=== PATIENT | female | born 1950 | race Caucasian/White ===

== ENCOUNTER 2021-05-06 12:34 | Emergency (ER) | payer MEDICARE, SELFPAY ==
[2021-05-06 13:08] VITALS: BP 143/74; BP 164/88; PULSE 66; PULSE 76; RESP 16; TEMP 36.7; O2SAT 100; O2SAT 99; BMI 25.0
--- NOTE | 2021-05-06 13:38 | PC.NURSE ---
Addendum entered by Claudia Nguyen, [facility] 05/06/21 13:51: CARE Team notified [facility] that CARE Team will see Pt due to insurance Original Note: patient was referred to n
[2021-05-06] MEDS: LORazepam 1 MG TABLET PO (13:46)
[2021-05-06 14:33] LABS: COVID-19 Test Negative (Negative)
[2021-05-06 14:47] LABS: Amphetamine Screen Urine Not Detected (Not Detect); Barbiturates, Urine Not Detected (Not Detect); Benzodiazepines Screen Urine Not Detected (Not Detect); Cannabinoid Screen Urine Not Detected (Not Detect); Cocaine Screen Urine Not Detected (Not Detect); Fentanyl, urine Not Detected (Not Detect); Opiate Screen Urine Not Detected (Not Detect); Phencyclidine Screen Urine Not Detected (Not Detect)
--- NOTE | 2021-05-06 15:46 | MHC.CARE ---
CARE team will meet with pt this evening. Per report- she received ativan around 2pm and is sleeping.
--- NOTE | 2021-05-06 16:54 | ED.ANXIETY ---
HPI - Anxiety General Chief Complaint: Anxiety <LINDSAY Tamayo - Last Filed: 05/06/21 17:34> Stated Complaint: ANXIETY ATTACK PER PT <LINDSAY Tamayo - Last Filed: 05/06/21 17:34> Time Seen by Provider: 05/06/21 13:40 <LINDSAY Tamayo Last Filed: 05/06/21 17:34> Source: patient <LINDSAY Tamayo - Last Filed: 05/06/21 17:34> Mode of arrival: ambulatory <LINDSAY Tamayo - Last Filed: 05/06/21 17:34> History of Present Illness HPI narrative: 70-year-old female with past medical history of anxiety presenting to the ED complaining of increased anxiety and panic attack since Thursday s/p being computer hacked. Patient reports she was substantially hacked with her credit cards/savings account, after mistrusting hackers which caused a panic attack, and she yelled at [employer] employee today. Denies EtOH or illicit drug use. Denies SI/HI, CP/SOB, abdominal pain, nausea/vomiting <LINDSAY Tamayo - Last Filed: 05/06/21 17:34> MD complaint: anxiety <LINDSAY Tamayo Last Filed: 05/06/21 17:34> Onset (ago): day(s) <LINDSAY Tamayo - Last Filed: 05/06/21 17:34> Related Data Home Medications: Home Medications Medication Instructions Recorded Confirmed azelastine 137 mcg (0.1 %) nasal 2 spray INTRANASAL DAILY 05/06/21 05/06/21 spray aerosol citalopram 20 mg tablet 1 tab PO DAILY 05/06/21 05/06/21 <LINDSAY Tamayo - Last Filed: 05/06/21 17:34> Allergies/Adverse Reactions: Allergies Allergy/AdvReac Type Severity Reaction Status Date / Time No Known Allergies Allergy Verified 05/06/21 13:40 <LINDSAY Tamayo Last Filed: 05/06/21 17:34> Review of Systems Review of Systems: Constitutional: No Fever, No Chills, No Fatigue, No Malaise ENT/Mouth: No Ear Pain, No Nasal Congestion, No sore throat, No Rhinorrhea, No Swallowing Difficulty Eyes: No Eye Pain, No Swelling, No Redness, No Vision Changes Cardiovascular: No Chest Pain, No SOB, No Dyspnea on Exertion, No Palpitations Respiratory: No Cough, No Sputum, No Dyspnea Gastrointestinal: No Nausea, No Vomiting, No Diarrhea, No Constipation, No Abdominal pain Genitourinary: No Dysuria, No Urinary Frequency, No Flank Pain Musculoskeletal: No joint pain, No Myalgias, No Joint Swelling Skin: No Skin Lesions, No rash Neuro: No Weakness, No Numbness, No Paresthesias, No Dizziness, No Headache Psych: + Anxiety/Panic, No Depression, No SI/HI/AH/VH, No Social Issues <LINDSAY Tamayo - Last Filed: 05/06/21 17:34> Yes all other systems are reviewed and are negative <LINDSAY Tamayo - Last Filed: 05/06/21 17:34> [facility] Past Medical History Attestation statement: The following information was validated with the patient. <LINDSAY Tamayo - Last Filed: 05/06/21 17:34> Social History Social History: Social History Advance Directives: No Advance Directives Information Provided: Yes <LINDSAY Tamayo - Last Filed: 05/06/21 17:34> Physical Exam Vital Signs: Vital Signs: Last Vital Signs Temp 98.1 F 05/06/21 13:08 Pulse 66 05/06/21 13:08 Resp 16 05/06/21 13:08 BP 143/74 H 05/06/21 13:08 Pulse Ox 100 05/06/21 13:08 BMI result Body Mass Index 25.0 <LINDSAY Tamayo - Last Filed: 05/06/21 17:34> Vital Signs: Last Vital Signs Temp 98.1 F 05/06/21 13:08 Pulse 66 05/06/21 13:08 Resp 16 05/06/21 13:08 BP 143/74 H 05/06/21 13:08 Pulse Ox 100 05/06/21 13:08 BMI result Body Mass Index 25.0 <LINDSAY Tipton - Last Filed: 05/06/21 20:05> Const: Other: Anxious, jumpy, tearful <Harika Mora PA - Last Filed: 05/06/21 17:34> General: cooperative, alert, awake and anxious <Harika Mora PA - Last Filed: 05/06/21 17:34> Orientation/consciousness: patient oriented x3 <Harika Mora PA - Last Filed: 05/06/21 17:34> Limitations: no limitations <Harika Mora PA - Last Filed: 05/06/21 17:34> HENMT: Head: Yes normal to inspection and Yes atraumatic <Harika Mora PA - Last Filed: 05/06/21 17:34> Ears: hearing grossly normal bilaterally <Harika Mora PA - Last Filed: 05/06/21 17:34> General nose exam: Normal external nose present <Harika Mora PA - Last Filed: 05/06/21 17:34> Face and sinus: Yes normal facial exam <Harika Mora PA - Last Filed: 05/06/21 17:34> Eyes: General: appearance normal, both eyes and all related structures <Harika Mora PA - Last Filed: 05/06/21 17:34> EOM: EOMs intact bilaterally <Harika Mora PA - Last Filed: 05/06/21 17:34> Neck: Neck: Yes normal visual inspection and Yes no meningeal signs <Harika Mora PA - Last Filed: 05/06/21 17:34> Resp: Effort & Inspection: normal respiratory effort and no respiratory distress <Harika Mora PA - Last Filed: 05/06/21 17:34> Auscultation: clear to auscultation bilaterally, no rales, no rhonchi and no wheezes <Harika Mora PA - Last Filed: 05/06/21 17:34> Cardio: Rate: regular rate <Harika Mora PA - Last Filed: 05/06/21 17:34> Heart sounds: S1 normal heart sound present and S2 normal heart sound present <Harika Mora PA - Last Filed: 05/06/21 17:34> GI: Inspection: Yes normal to inspection <LINDSAY Tamayo - Last Filed: 05/06/21 17:34> Palpation (GI): Soft to palpation, nontender, no guarding and not rigid <LINDSAY Tamayo - Last Filed: 05/06/21 17:34> Skin: Rashes: no rashes <Harika Mora PA - Last Filed: 05/06/21 17:34> Wounds: no wounds <Harika Mora PA - Last Filed: 05/06/21 17:34> Neuro: General: patient oriented x3, gait normal, tone normal, moves all extremities, no meningeal signs and CN's II-XI intact bilaterally <LINDSAY Tamayo - Last Filed: 05/06/21 17:34> Gait exam (Neuro): Normal gait present <Harika Mora PA - Last Filed: 05/06/21 17:34> Extrem: General: Yes normal to inspection <LINDSAY Tamayo - Last Filed: 05/06/21 17:34> Psych: Appearance: well kempt <Harika Mora PA - Last Filed: 05/06/21 17:34> Affect: Anxious affect present <LINDSAY Tamayo - Last Filed: 05/06/21 17:34> Attitude: cooperative <LINDSAY Tamayo - Last Filed: 05/06/21 17:34> Thought content: suicidality and no homicidality <LINDSAY Tamayo - Last Filed: 05/06/21 17:34> Insight: Good insight present (Psych) <LINDSAY Tamayo - Last Filed: 05/06/21 17:34> Judgement: Good judgement present (Psych) <LINDSAY Tamayo - Last Filed: 05/06/21 17:34> Course Course Course Narrative: -tox screen negative. COVID-19 negative. Patient medically cleared for care team evjolynn. Physician observation initiated -1800--ED care transferred to LINDSAY Ferro pending care team evaluation <LINDSAY Tamayo - Last Filed: 05/06/21 17:34> Reevaluation(s) Reevaluation #1: CARE team felicity met with patient. She called an EAP for her work, waiting to hear back for three therapy sessions. Looking to get outpatient help. Not HI or SI. Feeling much more calm. At this time patient will be dc home w/ plan for outpatient follow up. <LINDSAY Tipton - Last Filed: 05/06/21 20:05> Time: 20:04 <LINDSAY Tipton - Last Filed: 05/06/21 20:05> MDM - Anxiety MDM Narrative Medical decision making narrative: 70-year-old female with past medical history of anxiety presenting to the ED complaining of increased anxiety and panic attack since Thursday s/p being computer hacked. Exam vital signs stable, NAD/nontoxic anxious, tearful. Concern for increased anxiety/panic attacks Will have care team evaluate patient <LINDSAY Tamayo - Last Filed: 05/06/21 17:34> Medical Records Attestation: I reviewed the patient's medical records. <LINDSAY Tamayo - Last Filed: 05/06/21 17:34> Lab Data Attestation: I reviewed the patient's lab results. <LINDSAY Tamayo - Last Filed: 05/06/21 17:34> Labs: Lab Results 05/06/21 05/06/21 Range/Units 13:38 13:49 Urine Opiates Screen Not Detected (Not Detect) Urine Fentanyl Screen Not Detected (Not Detect) Ur Barbiturates Screen Not Detected (Not Detect) Ur Phencyclidine Scrn Not Detected (Not Detect) Ur Amphetamines Screen Not Detected (Not Detect) U Benzodiazepines Scrn Not Detected (Not Detect) Urine Cocaine Screen Not Detected (Not Detect) U Marijuana (THC) Screen Not Detected (Not Detect) COVID-19 (MARNIE) Negative (Negative) COVID-19 Clin Com See Note <LINDSAY Tamayo - Last Filed: 05/06/21 17:34> Lab Results 05/06/21 05/06/21 Range/Units 13:38 13:49 Urine Opiates Screen Not Detected (Not Detect) Urine Fentanyl Screen Not Detected (Not Detect) Ur Barbiturates Screen Not Detected (Not Detect) Ur Phencyclidine Scrn Not Detected (Not Detect) Ur Amphetamines Screen Not Detected (Not Detect) U Benzodiazepines Scrn Not Detected (Not Detect) Urine Cocaine Screen Not Detected (Not Detect) U Marijuana (THC) Screen Not Detected (Not Detect) COVID-19 (MARNIE) Negative (Negative) COVID-19 Clin Com See Note <LINDSAY Tipton - Last Filed: 05/06/21 20:05> Critical Care Time Critical Care Time Critical Care Time: No <LINDSAY Tipton - Last Filed: 05/06/21 20:05> Discharge Plan Discharge Clinical Impression: Acute anxiety <LINDSAY Tamayo - Last Filed: 05/06/21 17:34> Patient Disposition: Home, Self-Care <LINDSAY Tamayo - Last Filed: 05/06/21 17:34> Instructions: Panic Disorder (ED), Anxiety (ED) <LINDSAY Tamayo - Last Filed: 05/06/21 17:34> Additional Instructions: Take your medications as prescribed. If you were prescribed antibiotics today, it is important that you take your medication to their entirety, do not skip any doses, do not finish them early. Follow-up with your primary care provider this week. Return to the emergency department with new or worsening symptoms. Such as fevers, chills, chest pain, shortness of breath, nausea, vomiting, dizziness, headache, vision changes, lethargy In case of emergency call 911 <LINDSAY Tamayo - Last Filed: 05/06/21 17:34> Prescriptions: No Action citalopram 20 mg tablet 1 tab PO DAILY 0RF azelastine 137 mcg (0.1 %) aerosol,spray 2 spray intranasal DAILY 0RF <LINDSAY Tamayo - Last Filed: 05/06/21 17:34> Referrals: [facility] [Provider Group] - 2 days Physician,Unknown J [Primary Care Provider] - 2 days <LINDSAY Tamayo - Last Filed: 05/06/21 17:34> Stand Alone Forms: Work/School Release <LINDSAY Tamayo - Last Filed: 05/06/21 17:34>
--- NOTE | 2021-05-06 20:06 | MHC.CARE ---
CARE team consult received for pt who arrived to the ED by ambulance s/p experiencing a panic attack and calling 911 for herself. She recently fell victim to an elaborate scam that resulted in her withdrawing $11,000 from her alf savings and use $13,000 in credit to purchase a large number of gift cards from various stores and retailers. They started by calling last Thursday claiming to be from [employer] to tell her that her computer had been compromised and that the hackers may have access to her credit cards, then they went through her IP address to gain control of her computer and accessed all of her personal information, then instructed her to use her credit cards to buy gift cards and read them the gift card information over the phone. She reported that they kept her on the phone while she was making these purchases. On Thursday she had been called again by a different set of scammers, claiming to be the authorities, who informed her that she may have been victim of a scam, who encouraged her to withdraw all of her savings so that the first scammers wouldn't be able to access her money and then they, too, instructed her to buy gift cards with the money. She reported that she doesn't know how it happened, but that they got in her head and that she feels foolish. She reported that today she was calling the stores that she had purchased the gift cards from and calling her credit card company and bank. Toward the end of making several calls and being told all of the forms that she would have to fill out and return, she began to have a panic attack and called 911. She reported that she hasn't told her family because she feels ashamed. She had planned to retire in September but now feels that may have been compromised. She has two close friends that have been supportive, and she called her employer's EAP and is waiting to hear back about working with a therapist through [facility] (3 sessions covered) and will request referral for ongoing therapy. Pt requesting to go home. No SI/HI/AVH. Discussed plan of care with ED provider Jennifer MONTOYA. Pt is calling a friend to pick her up from the ED.
== END 2021-05-06 20:24 | disposition home or self-care (01) ==
PROVIDERS: Physician Assistant; Emergency Provider Internal Medicine
DX: F41.9 Anxiety disorder, unspecified (principal); Z20.822 Contact with and (suspected) exposure to COVID-19; Z79.899 Other long term (current) drug therapy
CPT/HCPCS: 80307; 87635; 99283; 99284